=== PATIENT | female | born 1965 ===

== ENCOUNTER 2017-05-13 18:36 | Emergency (ER) | payer OTHER ==
[2017-05-13 18:37] VITALS: BMI 25.7
[2017-05-13 19:11] VITALS: RESP 18
--- NOTE | 2017-05-13 20:25 | ED PDOC ---
HPI: General Adult Time Seen by Provider: 05/13/17 20:02 Chief Complaint (Nursing): Breast Problem Chief Complaint (Provider): right breast pain History Per: Patient History/Exam Limitations: no limitations Onset/Duration Of Symptoms: Days (2) Current Symptoms Are (Timing): Still Present Additional History Per: Patient Additional Complaint(s): 51 y/o female presents with right breast pain x 2 days. Patient states one month ago she noticed a small "lump" on the outer aspect of the right breast, which has gotten progressively larger. Patient notes similar symptoms two years ago, saw Dr. Van and had breast biopsy which did not show malignancy. Denies fever, nausea/vomiting, chest pain, shortness of breath, nipple discharge. Past Medical History Reviewed: Historical Data, Nursing Documentation, Vital Signs Vital Signs: Last Vital Signs Temp 98.7 F 05/13/17 19:09 Pulse 81 05/13/17 21:08 Resp 18 05/13/17 19:09 BP 144/85 05/13/17 21:08 Pulse Ox 99 05/14/17 00:25 - Medical History PMH: No Chronic Diseases - Surgical History Surgical History: No Surg Hx - Family History Family History: States: No Known Family Hx - Living Arrangements Living Arrangements: With Family - Home Medications Home Medications: Ambulatory Orders Medication Instructions Recorded oxyCODONE/Acetaminophen [Percocet 1 ea PO Q6 PRN #12 tab 05/14/17 5/325 mg Tab] - Allergies Allergies/Adverse Reactions: Allergies Allergy/AdvReac Type Severity Reaction Status Date / Time No Known Allergies Allergy Verified 06/13/15 09:41 Review of Systems ROS Statement: Except As Marked, All Systems Reviewed And Found Negative Skin: Positive for: Other (right breast pain) Physical Exam - Reviewed Nursing Documentation Reviewed: Yes Vital Signs Reviewed: Yes - Physical Exam Appears: Positive for: Well, Non-toxic, Uncomfortable Head Exam: Positive for: ATRAUMATIC, NORMAL INSPECTION, NORMOCEPHALIC Skin: Positive for: Normal Color Cardiovascular/Chest: Positive for: Regular Rate, Rhythm, Other (large palpable firm, tender mass lateral right breast in 9:00-11:00 position. No erythema, fluctuance, nipple retraction/discharge ) Respiratory: Positive for: Normal Breath Sounds Gastrointestinal/Abdominal: Positive for: Normal Exam Extremity: Positive for: Normal ROM Neurologic/Psych: Positive for: Alert, Oriented - Laboratory Results Result Diagrams: 05/13/17 20:40 05/13/17 20:40 - ECG O2 Sat by Pulse Oximetry: 99 - Progress ED Course And Treament: labs, u/s EXAM: US Right Breast, Limited EXAM DATE/TIME: 05/13/2017 8:22 PM CLINICAL HISTORY: 51 years old, female; Signs and symptoms; Mass, lump, or swelling; Right; Additional info: Outer breast pain/swelling TECHNIQUE: Limited real time ultrasound of the right breast with image documentation, including axilla when performed. COMPARISON: Prior right breast ultrasound of 2015-04-25 FINDINGS: Scanning in the area of palpable abnormality, as indicated by the patient, at the 7 to 8:00 position in the right breast 1-2 cm from the nipple, demonstrates a large, round, solid- appearing mass. This measures 6.7 x 6.5 x 5.9 cm. It is heterogeneous in echogenicity. It has circumscribed margins. It is slightly wider than it is tall. No evidence of significant associated flow/ vascularity on color imaging. This masseis similar in appearance to the mass seen on the prior ultrasound, but is larger in size. IMPRESSION: Large 6.7 x 6.5 cm solid mass at the 7 to 8:00 position, which corresponds to the palpable abnormality. This could represent a fibroadenoma, but malignancy is not excluded. Surgical consultation is recommended, and biopsy should be considered. BI-RADS code 4-Suspicious abnormality CAse discussed with Dr. Van, who agrees with plan to discharge and can follow up with her as outpatient. Patient educated on findings, discharged with rx Percocet Stressed importance of follow up with clinic/Dr. Van for biopsy. Return precautions given. Disposition - Clinical Impression Clinical Impression: Breast mass, right - Patient ED Disposition Is Patient to be Admitted: No Counseled Patient/Family Regarding: Studies Performed, Diagnosis, Need For Followup, Rx Given - Disposition Referrals: [facility] [Outside] [facility] [Outside] Xuan Van MD [Staff Provider] - Disposition: Routine/Home Disposition Time: 00:17 Condition: IMPROVED Prescriptions: oxyCODONE/Acetaminophen [Percocet 5/325 mg Tab] 1 ea PO Q6 PRN #12 tab PRN Reason: Pain, Severe (8-10) Instructions: Common Breast Problems Print Language: [place]
[2017-05-13 20:48] LABS: BASO % 0.5 % (0.0-2.0); EOS # 0.5 K/uL (0.0-0.7); EOS % 5.2 % (0.0-4.0); LYMPH # 2.4 K/uL (1.0-4.3); LYMPH % 23.1 % (20.0-40.0); MEAN CELL VOLUME 86.2 fl (81.0-99.0); MEAN CORPUSCULAR HEMOGLOBIN 29.1 pg (27.0-31.0); MEAN CORPUSCULAR HGB CONC 33.8 g/dL (33.0-37.0); MEAN PLATELET VOLUME 7.2 fl (7.2-11.7); MONO # 0.5 K/uL (0.0-0.8); NEUT # 6.9 K/uL (1.8-7.0); NEUT % 66.2 % (50.0-75.0); NRBC % 0.1 % (0.0-0.0); RBC 4.81 Mil/uL (3.80-5.20); RED CELL DISTRIBUTION WIDTH 13.2 % (11.5-14.5); WHITE BLOOD COUNT 10.4 K/uL (4.8-10.8)
[2017-05-13 21:13] LABS: ALB/GLOB RATIO 1.2 (1.0-2.1); ALBUMIN 3.9 g/dL (3.5-5.0); ALT/SGPT 31 U/L (9-52); AST/SGOT 41 U/L (14-36); BLOOD UREA NITROGEN 10 mg/dl (7-17); CALCIUM 9.3 mg/dL (8.4-10.2); GFR AFRICAN-AMERICAN > 60; GFR NON-AFRICAN AMERICAN > 60
[2017-05-13] MEDS ORDERED: Morphine 4 MG/ML VIAL ONE (22:40)
[2017-05-13] MEDS ORDERED: Morphine 4 MG/ML VIAL IVP ONE (22:40)
--- NOTE | 2017-05-13 23:56 | US ---
EXAM: US Right Breast, Limited EXAM DATE/TIME: 05/13/2017 8:22 PM CLINICAL HISTORY: 51 years old, female; Signs and symptoms; Mass, lump, or swelling; Right; Additional info: Outer breast pain/swelling TECHNIQUE: Limited real time ultrasound of the right breast with image documentation, including axilla when performed. COMPARISON: Prior right breast ultrasound of 2015-04-25 FINDINGS: Scanning in the area of palpable abnormality, as indicated by the patient, at the 7 to 8:00 position in the right breast 1-2 cm from the nipple, demonstrates a large, round, solid-appearing mass. This measures 6.7 x 6.5 x 5.9 cm. It is heterogeneous in echogenicity. It has circumscribed margins. It is slightly wider than it is tall. No evidence of significant associated flow/vascularity on color imaging. This masseis similar in appearance to the mass seen on the prior ultrasound, but is larger in size. IMPRESSION: Large 6.7 x 6.5 cm solid mass at the 7 to 8:00 position, which corresponds to the palpable abnormality. This could represent a fibroadenoma, but malignancy is not excluded. Surgical consultation is recommended, and biopsy should be considered. BI-RADS code 4-Suspicious abnormality
[2017-05-14 00:53] VITALS: BP 145/75; PULSE 80; TEMP 98; O2SAT 98
== END 2017-05-14 01:15 | disposition home or self-care (01) ==
LOC: H.ER 18:36
DX: N64.4 Mastodynia (principal); N63.10 Unspecified lump in the right breast, unspecified quadrant
CPT/HCPCS: 76642; 80053; 81025; 85025; 96374; 99283; J1885; J2270

== ENCOUNTER 2017-09-07 07:34 | Day surgery (SDC) | payer SELFPAY ==
[2017-09-01 11:40] VITALS: BMI 24.9
[2017-09-07] MEDS ORDERED: Propofol 10 mg/ml Inj (20 ML) ONE (09:34)
[2017-09-07] MEDS ORDERED: Midazolam 2 MG/2 ML VIAL ONE (09:34)
--- NOTE | 2017-09-07 09:48 | CP.SDSHP ---
Same Day Surgery H & P - History Proposed Procedure: Right partial mastectomy Pre-Op Diagnosis: Right breast mass - Previous Medical/Surgical History Pain: 0. No Pain - Allergies Allergies: Allergies No Known Allergies Allergy (Verified 09/07/17 07:52) - Physical Exam Vital Signs: Vital Signs 09/07/17 09/07/17 09/07/17 08:19 08:25 08:40 Temperature 97.5 F L Pulse Rate 87 87 74 Respiratory 20 20 Rate Blood Pressure 151/97 H 136/91 H O2 Sat by Pulse 100 Oximetry 09/07/17 08:42 Temperature Pulse Rate 76 Respiratory 20 Rate Blood Pressure 149/95 H O2 Sat by Pulse Oximetry Neuro: WNL Heart: WNL Lungs: WNL - {Optional Preform as Required} Breast: Other (large right breast mass along right lower lateral region of right breast) Integument: WNL - Impression Impression: 51F with right breast mass Pt. Evaluated Today:Candidate for Anesthesia & Procedure: Yes - Date & Time Date: 09/07/17 Time: 09:30 Short Stay Discharge - Short Stay Discharge Admitting Diagnosis/Reason for Visit: N63 Disposition: HOME/ ROUTINE Referrals: FAMILY PROVIDER,NO [Primary Care Provider] - Additional Instructions (Diet, Activity): Follow up with Dr. Van in 10-14 days
[2017-09-07] MEDS ORDERED: Lactated Ringer's 1,000 ML IV ONE ×2 (09:50→12:40)
[2017-09-07] MEDS ORDERED: Lactated Ringer's 500 ML IV ONE (10:20)
[2017-09-07] MEDS ORDERED: Dexamethasone 4 mg/1 ml ONE (10:21)
--- NOTE | 2017-09-07 10:58 | PCM.SURG1 ---
Surgeon's Initial Post Op Note - Surgeon's Notes Surgeon: Dr. Van Frame Straightener: Demetrio PGY2; Fernandez PGY1 Type of Anesthesia: General LMA Anesthesia Administered By: Dr. Candelaria Pre-Operative Diagnosis: Right Breast mass Operative Findings: Large right lower outer quadrant breast mass. See operative report Post-Operative Diagnosis: same Operation Performed: Partial Right Mastectomy; Wide Excision of Right Lower Outer Breast Mass Specimen/Specimens Removed: Right Lower Outer Breast Mass Estimated Blood Loss: EBL {In ML}: 15 Blood Products Given: N/A Drains Used: No Drains Post-Op Condition: Good Date of Surgery/Procedure: 09/07/17 Time of Surgery/Procedure: 10:59
[2017-09-07] MEDS ORDERED: Oxycodone/Acetaminophen 5/325 mg Tab PO PRN (11:00)
[2017-09-07] MEDS: HYDROmorphone 0.5 mg/0.5 ml ISec IVP PRN ×3 (11:15→11:45)
[2017-09-07 12:58] VITALS: RESP 18; O2SAT 97
[2017-09-07 14:05] VITALS: BP 145/87; PULSE 77; TEMP 97.5
--- NOTE | 2017-09-09 21:58 | OP ---
PROCEDURE DATE: 09/07/2017 SURGEON: Xuan Van MD ASSISTANTS: Dr. Atkinson and Dr. Presley. ANESTHESIA: General. ANESTHESIA ADMINISTERED BY: Dr. Candelaria PREOPERATIVE DIAGNOSIS: Right breast mass. POSTOPERATIVE DIAGNOSIS: Right breast mass. PROCEDURE: Right partial mastectomy, wide excision of right lower outer quadrant breast mass. DESCRIPTION OF OPERATION: With the patient in the supine position under adequate general anesthesia, the right breast was prepped and draped in the usual sterile manner. The patient was noted to have a large mass of approximately 7 cm diameter in the lower outer quadrant of the right breast which was movable relative to the chest wall and the skin and had been previously biopsied with an indeterminate pathology suggestive of reactive fibroadenoma versus desmoplastic tumor. A curvilinear circular incision was made along the lower outer quadrant of the right breast overlying the area of the mass, and skin flaps were raised centrally towards the areola and also peripherally with care being taken to maintain a plane of normal fatty tissue beyond the area of the tumor. After the superficial flaps were raised, the mass was then on all sides from the surrounding breast tissue using gentle traction and cautery and also taken care to maintain a margin of normal tissue beyond the tumor. The mass was freed circumferentially and then was delivered upwards through the skin incision allowing the deep attachments to be . There appeared to be some pressure effect on the deep aspect, and tissue plane was taken down to the muscle fascia on the deep aspect. The mass was removed. There was noted to be a small blue domed lesion inferior to the main mass which was also fully excised, and this was all sent to Pathology. The operative site was examined for hemostasis. The deepest portion of the tissue was reapproximated with a few 3-0 Vicryl interrupted sutures. This was primarily at the deep portion where the muscle fascia had been interrupted, and then closure was performed with running subcuticular sutures of 4-0 Monocryl and Steri-Strips. Dry sterile dressing was applied. The patient tolerated the procedure well and transferred to recovery room in stable condition. Estimated blood loss for the procedure was 15 mL. Xuan Van MD
== END 2017-09-07 14:00 | disposition home or self-care (01) ==
LOC: H.OPSURG 07:34
PROVIDERS: ATTEND Specialist
DX: D48.61 Neoplasm of uncertain behavior of right breast (principal)
CPT/HCPCS: 19301; 88307; J0690; J1100; J1170; J2001; J2250; J2405; J2704; J3010; J7120